=== PATIENT | female | born 1980 ===

== ENCOUNTER 2018-12-05 16:08 | Emergency (ER) | payer SELFPAY ==
[2018-12-05 16:23] VITALS: BP 129/68
--- NOTE | 2018-12-05 16:48 | ER Document Report ---
ED Medical Screen (RME) - General Chief Complaint: Wrist Pain Stated Complaint: RIGHT HAND PAIN Time Seen by Provider: 12/05/18 16:44 Mode of Arrival: Ambulatory Information source: Patient Notes: 38-year-old female presents to ED for pain and throbbing to her right hand. She states she went to the urgent care and they told her she was having arterial spasms and needed an arterial Doppler right away. She states she went to multiple places and nobody was able to do this today. She states she has been having the pain and swelling for 2 days at times it turns purple-red and swells at other times it is not painful but today it has been painful all day. Patient is alert oriented respirations regular and unlabored speaking in full sentences. She does have swelling to the thumb and hand on the right hand. 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 I have greeted and performed a rapid initial assessment of this patient. A comprehensive ED assessment and evaluation of the patient, analysis of test results and completion of medical decision making process will be conducted by an additional ED providers. Dictation of this chart was performed using voice recognition software; therefore, there may be some unintended grammatical errors. TRAVEL OUTSIDE OF THE [place] IN LAST 30 DAYS: No - Related Data Allergies/Adverse Reactions: No Known Allergies Allergy (Unverified 12/05/18 16:16) Past Medical History - Social History Chew tobacco use (# tins/day): No Frequency of alcohol use: None Drug Abuse: None Renal/ Medical History: Denies: Hx Peritoneal Dialysis Past Surgical History: Reports: Hx Section - x 2, Hx Cholecystectomy Physical Exam - Vital signs Vitals: Temp Pulse Resp BP Pulse Ox 98.8 F 87 16 129/68 H 95 12/05/18 16:22 12/05/18 16:22 12/05/18 16:22 12/05/18 16:22 12/05/18 16:22 Course - Vital Signs Vital signs: Temp Pulse Resp BP Pulse Ox 98.8 F 87 16 129/68 H 95 12/05/18 16:22 12/05/18 16:22 12/05/18 16:22 12/05/18 16:22 12/05/18 16:22
--- NOTE | 2018-12-06 07:37 | XCELERA REPORT ---
[address] [address] Upper Extremity Arterial Evaluation Name: GOLDEN HODGSON Age: 38 yrs Gender: Female : 1980 Patient Status: Preadmit Patient Location: ER Study Date: 12/05/2018 05:18 PM Procedure: A duplex scan of the upper extremity arteries was performed on the right. Reason For Study: Right upper extremity pain swelling Ordering Physician: ENRICO EPSTEIN Performed By: Iveth Esquivel Measurements and Calculations Right Left Prox SCLA PSV 98.2 cm/sec Mid SCLA PSV -96.5 cm/sec Ax A PSV 92.6 cm/sec Prox Brach A PSV -111.3 cm/sec Dist Brach A PSV -101.8 cm/sec Prox Rad A PSV 72.7 cm/sec Mid Rad A PSV -78.6 cm/sec Dist Rad A PSV 88.8 cm/sec Prox Ulnar A PSV 49.2 cm/sec Mid Ulnar A PSV 73.3 cm/sec Dist Ulnar A PSV -64.6 cm/sec Ax A PSV 92.6 cm/sec Dist Brach A PSV -101.8 cm/sec Dist Rad A PSV 88.8 cm/sec Dist Ulnar A PSV -64.6 cm/sec Mid Rad A PSV -78.6 cm/sec Mid SCLA PSV -96.5 cm/sec Mid Ulnar A PSV 73.3 cm/sec Prox Brach A PSV -111.3 cm/sec Prox Rad A PSV 72.7 cm/sec Prox Ulnar A PSV 49.2 cm/sec Right Side Arterial Evaluation Normal velocity and triphasic waveforms noted from the Common Carotid artery to the forearm vessels . Interpretation Summary No hemodynamically significant lesions noted in the right upper extremity arteries, on duplex imaging, at rest. : ENRICO EPSTEIN, Jose >
== END 2018-12-05 21:01 | disposition left against medical advice (07) ==
LOC: ER 16:08
DX: M25.531 Pain in right wrist (principal); Z90.49 Acquired absence of other specified parts of digestive tract
CPT/HCPCS: 93931; 99281